=== PATIENT | female | born 2000 | race Caucasian/White ===

== ENCOUNTER 2021-10-29 21:37 | Emergency (ER) | payer SELFPAY ==
[~2021-10-29] VITALS: Ht 157.5 cm; Wt 79.5 kg
[2021-10-29 22:31] VITALS: BP 139/86
--- NOTE | 2021-10-29 22:37 | NUR ---
pt in restroom for urine collection.
--- NOTE | 2021-10-29 22:39 | NUR ---
pt sent to lobby.
--- NOTE | 2021-10-29 23:37 | NUR ---
PT TAKEN TO ER BED 08
[2021-10-29 23:58] LABS: APPEARANCE,URINE CLEAR (CLEAR); BILIRUBIN,URINE NEGATIVE (NEGATIVE); BLOOD, URINE 1+ (NEGATIVE); COLOR,URINE YELLOW (YELLOW); LEUKOCYTE ESTERASE ,URINE NEGATIVE (NEGATIVE); NITRITE, URINE NEGATIVE (NEGATIVE); UGLUCOSE NEGATIVE (NEGATIVE)
--- NOTE | 2021-10-30 | NUR ---
Received in bed 8 with c/o vaginal burning xtoday. states vulva field with urination. denies urgency and frequency. denies discharge. hx:liver and lung cancer
[2021-10-30 00:14] LABS: RBC,URINE 0-5 /HPF (0-5)
[2021-10-30] MEDS ORDERED: IBUP-2213 PO (00:30)
[2021-10-30] MEDS ORDERED: HYD1C TP (00:30)
[2021-10-30] MEDS ORDERED: CIPR500T4 PO (00:30)
--- NOTE | 2021-10-30 00:43 | NUR ---
Patient discharged with v/s stable. Written and verbal after care instructions given and explained. Patient alert, oriented and verbalized understanding of instructions. Ambulatory with steady gait. All questions addressed prior to discharge. ID band removed. Patient advised to follow up with PMD. Rx of motrin, cipro given. Patient educated on indication of medication including possible reaction and side effects. Opportunity to ask questions provided and answered.
== END 2021-10-30 00:43 | disposition home or self-care (01) ==
LOC: MED 21:37
DX: N39.0 Urinary tract infection, site not specified (principal); Z98.890 Other specified postprocedural states
CPT/HCPCS: 81001; 81025; 87086; 99283